=== PATIENT | female | born 1945 ===

== ENCOUNTER 2021-03-01 10:50 | Inpatient (IN) | payer OTHER ==
[~2021-03-01] VITALS: Ht 160 cm; Wt 108.4 kg
[2021-03-01] MEDS ORDERED: HYDROcodone-ACET 10/325MG TAB PO ONE (13:00)
[2021-03-01 14:30] LABS: Basophils # (auto) 0 10 ^3/uL (0-0.2); Basophils % (auto) 0.2 % (0.0-2.0); Eosinophils # (auto) 0 10 ^3/uL (0-0.8); Eosinophils % (auto) 0.2 % (0.0-7.0); Hematocrit 39.8 % (36.0-46.0); Lymphocytes # (auto) 1.1 10 ^3/uL (0.4-5.4); Lymphocytes % (auto) 7.2 % (10.0-50.0); Mean Corpuscular Hemoglobin 29.9 pg (28.0-32.0); Mean Corpuscular Hgb Conc. 32.7 g/dL (32.0-36.0); Mean Corpuscular Volume 91.6 fL (80.0-100.0); Monocytes # (auto) 0.4 10 ^3/uL (0-1.3); Monocytes % (auto) 2.2 % (0.0-12.0); Neutrophils # (auto) 14.2 10 ^3/uL (1.6-8.6); Neutrophils % (auto) 90.2 % (37.0-80.0); Red Blood Cells 4.35 10^6/uL (4.0-5.20); Red Cell Distribution Width 13.3 % (11.8-14.3); White Blood Cell 15.8 10^3/uL (4.4-10.8)
[2021-03-01 14:46] LABS: INR 1.01 (0.9-1.15); Partial Thromboplastin Time 25.1 sec (23.6-33.0)
[2021-03-01 14:51] LABS: Albumin 3.8 g/dL (3.4-5.0); Calcium 8.8 mg/dL (8.5-10.1)
[2021-03-01 14:56] LABS: BUN/Creatinine Ratio 19.5; Bilirubin, Total 1.1 mg/dL (0.2-1.0); Total Protein 6.9 g/dL (6.4-8.2)
[2021-03-01] MEDS ORDERED: ASPirin 81 mg TAB PO ONE (16:45)
[2021-03-01] MEDS ORDERED: HEPARIN SODIUM (PORCINE) 5000 UNITS/ML 1ML VIAL IV ONE ×2 (18:30→19:00)
[2021-03-01] MEDS ORDERED: DOCUSATE SOD 100 MG CAP PO PRN (18:30)
[2021-03-01] MEDS ORDERED: MORPHINE SULFATE 4 MG/ML SYR/VIAL IV ONE (18:30)
[2021-03-01] MEDS ORDERED: ACETAMINOPHEN 325 MG TAB PO PRN (18:30)
[2021-03-01] MEDS ORDERED: LORazepam 0.5 MG TAB PO PRN (18:30)
[2021-03-01] MEDS ORDERED: DEXTROSE (50%) 50ML SYRG IV PRN (18:30)
[2021-03-01] MEDS ORDERED: LISINOPRIL 10 MG TAB PO ONE (18:30)
[2021-03-01] MEDS ORDERED: HYDROcodone-ACET 5/325MG TAB PO PRN (18:30)
[2021-03-01] MEDS ORDERED: HEPARIN DRIP/D5W 100UNITS/ML 250 ML IV SCH (18:30)
[2021-03-01] MEDS ORDERED: NITROGLYCERIN 0.4 MG SL TAB SL PRN (18:30)
[2021-03-01] MEDS ORDERED: MORPHINE SULFATE INJECTION 2 MG/ML SYRG IV PRN (18:30)
[2021-03-01] MEDS: SOD CHL 0.45% 1,000 ML IV SCH (19:02)
[2021-03-01 19:15] LABS: Urine Amorphous Crystal FEW /hpf (None Seen); Urine Bacteria FEW /hpf (None Seen); Urine Blood Negative /uL (Negative); Urine Hyaline Cast MANY /lpf (0 - 2); Urine Mucus FEW (None Seen); Urine Specific Gravity 1.026 (1.001-1.035); Urine WBC 4 /hpf (0 - 5)
[2021-03-01 19:42] LABS: Cholesterol 160 mg/dL (< 200); Triglycerides 87 mg/dL (< 150)
[2021-03-01 19:44] LABS: HDL Cholesterol 65 mg/dL (40-59); LDL Cholesterol 81 mg/dL (< 100)
[2021-03-01] MEDS: ATORVASTATIN 20 MG TAB PO ONE ×2 (19:50→19:51)
[2021-03-01] MEDS: DOPamine 1600MCG/ML D5W 250 ML IV SCH (21:01)
[2021-03-01] MEDS: ONDANSETRON HCL 4 MG/2 ML VIAL IV PRN (21:16)
[2021-03-01] MEDS: HYDROmorphone HCL 2 MG/ML VL IV PRN (21:17)
[2021-03-02] MEDS: ACCU-CHEK COMFORT CURVE STRIP VI SCH ×4 (00:17→18:00)
[2021-03-02 02:45] LABS: INR 1.04 (0.9-1.15); Partial Thromboplastin Time 57.2 sec (23.6-33.0)
[2021-03-02] MEDS: HYDROmorphone HCL 2 MG/ML VL IV PRN ×4 (04:05→16:16)
[2021-03-02] MEDS: ONDANSETRON HCL 4 MG/2 ML VIAL IV PRN ×4 (04:05→16:16)
[2021-03-02] MEDS: InsuLIN REG 1unit/0.01ml Soln (100units/ml) SC SCH ×4 (06:33→18:00)
[2021-03-02 07:34] LABS: Basophils # (auto) 0.1 10 ^3/uL (0-0.2); Basophils % (auto) 0.6 % (0.0-2.0); Eosinophils # (auto) 0 10 ^3/uL (0-0.8); Hematocrit 32.9 % (36.0-46.0); Lymphocytes # (auto) 2.1 10 ^3/uL (0.4-5.4); Lymphocytes % (auto) 16.5 % (10.0-50.0); Mean Corpuscular Hemoglobin 30.4 pg (28.0-32.0); Mean Corpuscular Hgb Conc. 33.6 g/dL (32.0-36.0); Mean Corpuscular Volume 90.7 fL (80.0-100.0); Monocytes # (auto) 0.9 10 ^3/uL (0-1.3); Monocytes % (auto) 7.1 % (0.0-12.0); Neutrophils # (auto) 9.9 10 ^3/uL (1.6-8.6); Neutrophils % (auto) 75.8 % (37.0-80.0); Red Blood Cells 3.62 10^6/uL (4.0-5.20); Red Cell Distribution Width 13.1 % (11.8-14.3); White Blood Cell 13.1 10^3/uL (4.4-10.8)
[2021-03-02 07:39] LABS: INR 1.01 (0.9-1.15); Partial Thromboplastin Time 43.9 sec (23.6-33.0)
[2021-03-02] MEDS: DOPamine 1600MCG/ML D5W 250 ML IV SCH ×2 (10:03→23:35)
[2021-03-02] MEDS: SOD CHL 0.45% 1,000 ML IV SCH (11:30)
[2021-03-02] MEDS ORDERED: HEPARIN DRIP/D5W 100UNITS/ML 250 ML IV SCH ×2 (19:00→19:15)
[2021-03-03] MEDS: ACCU-CHEK COMFORT CURVE STRIP VI SCH ×4 (00:11→18:00)
[2021-03-03] MEDS: InsuLIN REG 1unit/0.01ml Soln (100units/ml) SC SCH ×4 (00:12→18:13)
[2021-03-03] MEDS: ONDANSETRON HCL 4 MG/2 ML VIAL IV PRN ×4 (01:55→15:45)
[2021-03-03] MEDS: HYDROmorphone HCL 2 MG/ML VL IV PRN ×2 (01:56→11:39)
[2021-03-03] MEDS: SOD CHL 0.45% 1,000 ML IV SCH ×3 (03:55→22:33)
[2021-03-03 08:36] LABS: Basophils # (auto) 0.1 10 ^3/uL (0-0.2); Basophils % (auto) 0.4 % (0.0-2.0); Eosinophils # (auto) 0 10 ^3/uL (0-0.8); Eosinophils % (auto) 0.1 % (0.0-7.0); Hematocrit 31.3 % (36.0-46.0); Hemoglobin 10.5 g/dL (12.2-16.2); Lymphocytes # (auto) 1.8 10 ^3/uL (0.4-5.4); Lymphocytes % (auto) 11.8 % (10.0-50.0); Mean Corpuscular Hemoglobin 30.5 pg (28.0-32.0); Mean Corpuscular Hgb Conc. 33.5 g/dL (32.0-36.0); Mean Corpuscular Volume 91.2 fL (80.0-100.0); Monocytes # (auto) 1.5 10 ^3/uL (0-1.3); Monocytes % (auto) 9.5 % (0.0-12.0); Neutrophils # (auto) 12.2 10 ^3/uL (1.6-8.6); Neutrophils % (auto) 78.2 % (37.0-80.0); Nucleated Red Blood Cells % 0.1 %; Red Blood Cells 3.44 10^6/uL (4.0-5.20); Red Cell Distribution Width 13.7 % (11.8-14.3); White Blood Cell 15.6 10^3/uL (4.4-10.8)
[2021-03-03 09:05] LABS: Calcium 8.8 mg/dL (8.5-10.1); Potassium 4.9 mmol/L (3.5-5.1)
[2021-03-03 09:08] LABS: BUN/Creatinine Ratio 43.5
[2021-03-03] MEDS ORDERED: IOHEXOL 350 MG/ML 100ML IJ ONE (12:36)
[2021-03-03] MEDS ORDERED: LIDOCAINE 2%HCL (LOCAL ANESTH.) INJ 20ML MDV ONE ×2 (12:36→13:26)
[2021-03-03] MEDS ORDERED: fentaNYL CITRATE 100 MCG/2 ML VL ONE ×2 (12:42→13:51)
[2021-03-03] MEDS ORDERED: MIDAZOLAM HCL 2MG/2ML 2ml VIAL (1mg/ml) ONE ×2 (12:43→13:51)
[2021-03-03] MEDS ORDERED: SODIUM CHL 0.9% 0 ML ONE (12:56)
[2021-03-03] MEDS ORDERED: ANGIOMAX 250 MG VIAL IV ONE (12:56)
[2021-03-03] MEDS ORDERED: VANCOMYCIN 1GM/250ML 250 ML IV ONE (13:25)
[2021-03-03] MEDS ORDERED: VANCOMYCIN HCL 1000 MG VL ONE (14:07)
[2021-03-03] MEDS ORDERED: IODIXANOL 320MG/ML 100ML BTL IV ONE (14:16)
[2021-03-03] MEDS ORDERED: LOSA-69 PO (17:42)
[2021-03-03] MEDS ORDERED: METF-370 PO (17:43)
[2021-03-03 20:00] VITALS: BP 117/47
[2021-03-03 22:00] VITALS: BP 106/66
[2021-03-03] MEDS ORDERED: ENOXAPARIN SOD 100 MG/1 ML SYRINGE SC SCH (22:00)
[2021-03-03] MEDS: VANCOMYCIN 1GM/250ML 250 ML IV SCH (22:31)
[2021-03-04] MEDS: MORPHINE SULFATE INJECTION 2 MG/ML SYRG IV PRN ×4 (01:11→19:00)
[2021-03-04] MEDS: SOD CHL 0.45% 1,000 ML IV SCH ×2 (01:13→01:45)
[2021-03-04] MEDS: InsuLIN REG 1unit/0.01ml Soln (100units/ml) SC SCH ×4 (01:54→17:14)
[2021-03-04 05:00] VITALS: BP 135/75
[2021-03-04] MEDS: ACCU-CHEK COMFORT CURVE STRIP VI SCH ×4 (06:02→17:22)
[2021-03-04 06:35] LABS: Basophils # (auto) 0.1 10 ^3/uL (0-0.2); Basophils % (auto) 0.8 % (0.0-2.0); Eosinophils # (auto) 0.1 10 ^3/uL (0-0.8); Eosinophils % (auto) 1.2 % (0.0-7.0); Hematocrit 29.5 % (36.0-46.0); Lymphocytes # (auto) 2.1 10 ^3/uL (0.4-5.4); Lymphocytes % (auto) 19.6 % (10.0-50.0); Mean Corpuscular Hemoglobin 31.1 pg (28.0-32.0); Mean Corpuscular Volume 91.4 fL (80.0-100.0); Monocytes # (auto) 0.9 10 ^3/uL (0-1.3); Monocytes % (auto) 8.5 % (0.0-12.0); Neutrophils # (auto) 7.4 10 ^3/uL (1.6-8.6); Neutrophils % (auto) 69.9 % (37.0-80.0); Red Blood Cells 3.22 10^6/uL (4.0-5.20); Red Cell Distribution Width 13.3 % (11.8-14.3); White Blood Cell 10.5 10^3/uL (4.4-10.8)
[2021-03-04 06:49] LABS: BUN/Creatinine Ratio 41.8; Potassium 4.5 mmol/L (3.5-5.1)
[2021-03-04 09:00] VITALS: BP 117/71
[2021-03-04] MEDS: VANCOMYCIN 1GM/250ML 250 ML IV SCH (09:49)
[2021-03-04] MEDS: ONDANSETRON HCL 4 MG/2 ML VIAL IV PRN ×2 (12:50→18:58)
[2021-03-04 13:00] VITALS: BP 121/81
[2021-03-04 17:00] VITALS: BP 136/84
[2021-03-04 20:00] VITALS: BP 117/47
[2021-03-04 22:00] VITALS: BP 153/85
[2021-03-05] MEDS: InsuLIN REG 1unit/0.01ml Soln (100units/ml) SC SCH ×4 (00:56→19:40)
[2021-03-05] MEDS: ACCU-CHEK COMFORT CURVE STRIP VI SCH ×4 (01:01→19:49)
[2021-03-05 05:00] VITALS: BP 137/78
[2021-03-05 05:13] LABS: Basophils # (auto) 0.1 10 ^3/uL (0-0.2); Basophils % (auto) 0.7 % (0.0-2.0); Eosinophils # (auto) 0.2 10 ^3/uL (0-0.8); Eosinophils % (auto) 2.9 % (0.0-7.0); Hematocrit 27.1 % (36.0-46.0); Hemoglobin 9.3 g/dL (12.2-16.2); Lymphocytes # (auto) 1.8 10 ^3/uL (0.4-5.4); Lymphocytes % (auto) 20.7 % (10.0-50.0); Mean Corpuscular Hemoglobin 31.3 pg (28.0-32.0); Mean Corpuscular Hgb Conc. 34.5 g/dL (32.0-36.0); Mean Corpuscular Volume 90.6 fL (80.0-100.0); Monocytes # (auto) 0.8 10 ^3/uL (0-1.3); Neutrophils # (auto) 5.7 10 ^3/uL (1.6-8.6); Neutrophils % (auto) 66.7 % (37.0-80.0); Nucleated Red Blood Cells % 0.1 %; Red Blood Cells 2.99 10^6/uL (4.0-5.20); Red Cell Distribution Width 12.9 % (11.8-14.3); White Blood Cell 8.6 10^3/uL (4.4-10.8)
[2021-03-05 05:45] LABS: BUN/Creatinine Ratio 34.4; Potassium 4.5 mmol/L (3.5-5.1)
[2021-03-05 08:00] VITALS: BP 153/93
[2021-03-05] MEDS: MORPHINE SULFATE INJECTION 2 MG/ML SYRG IV PRN ×2 (09:15→22:08)
[2021-03-05] MEDS ORDERED: HYDROmorphone HCL 2 MG/ML VL IV PRN (10:15)
[2021-03-05 13:00] VITALS: BP 152/81
[2021-03-05 17:00] VITALS: BP 163/91
[2021-03-05 22:00] VITALS: BP 138/78
[2021-03-05] MEDS ORDERED: HEPARIN DRIP/D5W 100UNITS/ML 250 ML IV SCH (22:00)
[2021-03-05] MEDS ORDERED: HEPARIN SODIUM (PORCINE) 5000 UNITS/ML 1ML VIAL IV ONE (22:00)
[2021-03-05 22:08] VITALS: BP 134/77
[2021-03-05] MEDS: SOD CHL 0.45% 1,000 ML IV SCH (22:09)
[2021-03-05 22:45] LABS: INR 0.98 (0.9-1.15)
[2021-03-06] MEDS: InsuLIN REG 1unit/0.01ml Soln (100units/ml) SC SCH (00:57)
== END 2021-03-06 04:05 | disposition short-term general hospital (02) | DRG 242 ==
LOC: EDBD 10:50 → ER 10:50 → TELE 18:20 → TELE-CENTR 03-03 16:55
PROVIDERS: ADMIT Family Medicine; ATTEND Internal Medicine Pulmonary Disease
PROC: 4A023N7 Measurement of Cardiac Sampling and Pressure, Left Heart, Percutaneous Approach (ICD-10-PCS; principal; 2021-03-03)
PROC: 0JH606Z Insertion of Pacemaker, Dual Chamber into Chest Subcutaneous Tissue and Fascia, Open Approach (ICD-10-PCS; 2021-03-03)
PROC: 02HK3JZ Insertion of Pacemaker Lead into Right Ventricle, Percutaneous Approach (ICD-10-PCS; 2021-03-03)
PROC: 02H63JZ Insertion of Pacemaker Lead into Right Atrium, Percutaneous Approach (ICD-10-PCS; 2021-03-03)
PROC: B2151ZZ Fluoroscopy of Left Heart using Low Osmolar Contrast (ICD-10-PCS; 2021-03-03)
PROC: B2111ZZ Fluoroscopy of Multiple Coronary Arteries using Low Osmolar Contrast (ICD-10-PCS; 2021-03-03)
DX: I44.2 Atrioventricular block, complete (principal); I21.4 Non-ST elevation (NSTEMI) myocardial infarction; S72.452A Displaced supracondylar fracture without intracondylar extension of lower end of left femur, initial encounter for closed fracture; E46 Unspecified protein-calorie malnutrition; Z68.41 Body mass index [BMI] 40.0-44.9, adult; I82.492 Acute embolism and thrombosis of other specified deep vein of left lower extremity; D72.829 Elevated white blood cell count, unspecified; I10 Essential (primary) hypertension; M19.90 Unspecified osteoarthritis, unspecified site; Z96.651 Presence of right artificial knee joint; Z20.822 Contact with and (suspected) exposure to COVID-19; E66.01 Morbid (severe) obesity due to excess calories; W18.39XA Other fall on same level, initial encounter; E11.9 Type 2 diabetes mellitus without complications; Z88.2 Allergy status to sulfonamides; Y93.89 Activity, other specified; Y92.098 Other place in other non-institutional residence as the place of occurrence of the external cause; Y99.8 Other external cause status; Z88.8 Allergy status to other drugs, medicaments and biological substances
CPT/HCPCS: 33208; 36415; 70450; 71045; 72192; 73562; 80048; 80053; 80061; 81001; 82962; 83036; 84443; 84484; 85025; 85610; 85730; 87426; 93005; 93306; 93458; 93970; 96374; 99152; 99153; G0378; J1815; J2250; J2405; Q9967

== ENCOUNTER 2022-07-09 17:20 | Inpatient (IN) | payer OTHER ==
[~2022-07-09] VITALS: Ht 170.2 cm; Wt 97.0 kg
[~2022-07-09 17:20] MED LIST: LOSA-69 PO; METF-370 PO
[2022-07-09] MEDS ORDERED: MAGNESIUM SULFATE 1GM/100ML 100 ML IV ONE ×2 (17:24→17:25)
[2022-07-09] MEDS ORDERED: SODIUM CHLORIDE 0.9% 1,000 ML IV ONE (17:30)
[2022-07-09] MEDS ORDERED: cefTRIAXone 1GM/50ML D5W 50 ML IV ONE (17:30)
[2022-07-09] MEDS ORDERED: ACETAMINOPHEN 325 MG TAB PO ONE (17:30)
[2022-07-09 18:23] LABS: Albumin 3.4 g/dL (3.4-5.0); Calcium 8.8 mg/dL (8.5-10.1); Magnesium 2.7 mg/dL (1.6-2.6); Potassium 4.5 mmol/L (3.5-5.1)
[2022-07-09 18:27] LABS: Lactic Acid w/Reflex 2.6 mmol/L (0.4-2.0)
[2022-07-09 18:32] LABS: BUN/Creatinine Ratio 27.7 (10.0-20.0); Bilirubin, Total 3.2 mg/dL (0.2-1.0); CRP High Sensitivity 9.85 mg/dL (< 0.3)
[2022-07-09 19:01] LABS: Basophils # (auto) 0 10 ^3/uL (0-0.2); Basophils % (auto) 0.3 % (0.0-2.0); Eosinophils # (auto) 0 10 ^3/uL (0-0.8); Hemoglobin 12.2 g/dL (12.2-16.2); Lymphocytes # (auto) 0.8 10 ^3/uL (0.4-5.4); Lymphocytes % (auto) 6.4 % (10.0-50.0); Mean Corpuscular Hemoglobin 29.5 pg (28.0-32.0); Mean Corpuscular Volume 89.4 fL (80.0-100.0); Monocytes % (auto) 7.6 % (0.0-12.0); Neutrophils # (auto) 11.2 10 ^3/uL (1.6-8.6); Neutrophils % (auto) 85.7 % (37.0-80.0); Nucleated Red Blood Cells % 0.1 %; Red Blood Cells 4.14 10^6/uL (4.0-5.20); White Blood Cell 13.1 10^3/uL (4.4-10.8)
[2022-07-09 19:40] LABS: Alcohol, Urine < 3.0 mg/dL (0-10); Amphetamine Screen, Urine NEGATIVE (NEGATIVE); Barbiturate Scree,Urine NEGATIVE (NEGATIVE); Benzodiazephine Screen, Urine NEGATIVE (NEGATIVE); Cannabinoid Screen, Urine NEGATIVE (NEGATIVE); Cocaine Screen, Urine NEGATIVE (NEGATIVE); Opiate Scree,Urine NEGATIVE (NEGATIVE); Phencyclidine Screen, Urine NEGATIVE (NEGATIVE)
[2022-07-09 20:01] LABS: Urine Bacteria NONE SEEN /hpf (None Seen); Urine Blood TRACE /uL (Negative); Urine Hyaline Cast FEW /lpf (0 - 2); Urine Mucus FEW (None Seen); Urine Specific Gravity 1.024 (1.001-1.035); Urine WBC 1 /hpf (0 - 5)
[2022-07-09] MEDS ORDERED: DEXTROSE (50%) 50ML SYRG IV PRN (22:15)
[2022-07-09] MEDS ORDERED: IBUPROFEN 600 MG TAB PO PRN (22:15)
[2022-07-09] MEDS ORDERED: ONDANSETRON HCL 4 MG/2 ML VIAL IV PRN (22:15)
[2022-07-09] MEDS ORDERED: DOCUSATE SOD 100 MG CAP PO PRN (22:15)
[2022-07-10] MEDS ORDERED: MORPHINE SULFATE INJ 2 MG/ml SYRG IV PRN
[2022-07-10] MEDS ORDERED: NITROGLYCERIN 0.4 MG SL TAB SL PRN
[2022-07-10 05:48] LABS: Albumin 2.8 g/dL (3.4-5.0); BUN/Creatinine Ratio 24.7 (10.0-20.0); Calcium 8.3 mg/dL (8.5-10.1); Potassium 4.1 mmol/L (3.5-5.1)
[2022-07-10 05:50] LABS: Bilirubin, Total 2.1 mg/dL (0.2-1.0); Total Protein 5.8 g/dL (6.4-8.2)
[2022-07-10 06:02] LABS: Basophils # (auto) 0 10 ^3/uL (0-0.2); Basophils % (auto) 0.2 % (0.0-2.0); Eosinophils # (auto) 0 10 ^3/uL (0-0.8); Eosinophils % (auto) 0.1 % (0.0-7.0); Hemoglobin 12.8 g/dL (12.2-16.2); Lymphocytes # (auto) 1.1 10 ^3/uL (0.4-5.4); Lymphocytes % (auto) 11.5 % (10.0-50.0); Mean Corpuscular Hemoglobin 30.4 pg (28.0-32.0); Mean Corpuscular Hgb Conc. 33.8 g/dL (32.0-36.0); Mean Corpuscular Volume 89.9 fL (80.0-100.0); Monocytes # (auto) 0.7 10 ^3/uL (0-1.3); Monocytes % (auto) 7.1 % (0.0-12.0); Neutrophils # (auto) 7.9 10 ^3/uL (1.6-8.6); Neutrophils % (auto) 81.1 % (37.0-80.0); Nucleated Red Blood Cells % 0.1 %; Red Blood Cells 4.22 10^6/uL (4.0-5.20); Red Cell Distribution Width 14.8 % (11.8-14.3); White Blood Cell 9.8 10^3/uL (4.4-10.8)
[2022-07-10] MEDS: SODIUM CHLOR 0.9% PF (SALINE LOCK) 10ML VIAL/SYR IV SCH ×3 (06:14→22:04)
[2022-07-10] MEDS: InsuLIN REG 1unit/0.01ml Soln (100units/ml) SC SCH ×4 (06:53→22:04)
[2022-07-10] MEDS: ACCU-CHEK COMFORT CURVE STRIP VI SCH ×4 (06:59→22:05)
[2022-07-10] MEDS ORDERED: VANCOMYCIN PER PHARMACY 0 MG IV SCH (07:15)
[2022-07-10] MEDS: ASPirin 81 mg TAB PO SCH (10:00)
[2022-07-10] MEDS: FUROSEMIDE 40 MG/4 ML VIAL IV SCH (10:00)
[2022-07-10] MEDS: VANCOMYCIN 1GM/250ML 250 ML IV SCH ×2 (10:01→20:00)
[2022-07-10] MEDS: FAMOTIDINE (10MG/ML) 2ML VL IV SCH (10:01)
[2022-07-10] MEDS ORDERED: DEXTROSE 10% 250 ML IV ONE (12:00)
[2022-07-10 19:16] LABS: INR 1.07 (0.9-1.15); Partial Thromboplastin Time 27.9 sec (24.6-33.4)
[2022-07-10] MEDS ORDERED: FURO40TA4 PO (20:56)
[2022-07-10] MEDS ORDERED: POTA1TAB61 (20:57)
[2022-07-10] MEDS: cefTRIAXone 1GM/50ML D5W 50 ML IV SCH (21:42)
[2022-07-10 22:00] VITALS: BP_SYST 108; BP_SYST 125; BP_DIAS 62; BP_DIAS 71
[2022-07-11 05:00] VITALS: BP 136/89
[2022-07-11] MEDS: SODIUM CHLOR 0.9% PF (SALINE LOCK) 10ML VIAL/SYR IV SCH ×3 (06:20→22:13)
[2022-07-11] MEDS: ACCU-CHEK COMFORT CURVE STRIP VI SCH ×4 (06:46→21:56)
[2022-07-11] MEDS: InsuLIN REG 1unit/0.01ml Soln (100units/ml) SC SCH ×4 (06:46→21:56)
[2022-07-11] MEDS: VANCOMYCIN 1GM/250ML 250 ML IV SCH ×2 (08:55→21:09)
[2022-07-11 09:00] VITALS: BP 96/47
[2022-07-11] MEDS: ASPirin 81 mg TAB PO SCH (09:35)
[2022-07-11] MEDS: FAMOTIDINE (10MG/ML) 2ML VL IV SCH (09:35)
[2022-07-11] MEDS: FUROSEMIDE 40 MG/4 ML VIAL IV SCH (09:36)
[2022-07-11 13:00] VITALS: BP 134/68
[2022-07-11 17:00] VITALS: BP 130/92
[2022-07-11] MEDS: cefTRIAXone 1GM/50ML D5W 50 ML IV SCH (17:57)
[2022-07-11 22:00] VITALS: BP 134/80
[2022-07-12 05:00] VITALS: BP_SYST 125; BP_SYST 139; BP_DIAS 70; BP_DIAS 92
[2022-07-12] MEDS: SODIUM CHLOR 0.9% PF (SALINE LOCK) 10ML VIAL/SYR IV SCH ×3 (05:52→22:36)
[2022-07-12] MEDS: ACCU-CHEK COMFORT CURVE STRIP VI SCH ×4 (05:52→21:45)
[2022-07-12] MEDS: InsuLIN REG 1unit/0.01ml Soln (100units/ml) SC SCH ×4 (06:03→21:46)
[2022-07-12] MEDS: FUROSEMIDE 40 MG/4 ML VIAL IV SCH (08:37)
[2022-07-12] MEDS: ASPirin 81 mg TAB PO SCH (08:38)
[2022-07-12 08:55] VITALS: BP 131/76
[2022-07-12 13:00] VITALS: BP 95/61
[2022-07-12] MEDS: LACTULOSE 20Gm/30ML SOLN PO ONE ×2 (14:35→14:41)
[2022-07-12 17:00] VITALS: BP 124/72
[2022-07-12] MEDS: cefTRIAXone 1GM/50ML D5W 50 ML IV SCH (18:04)
[2022-07-12 22:00] VITALS: BP 132/85
[2022-07-13 05:00] VITALS: BP 113/77
[2022-07-13] MEDS: InsuLIN REG 1unit/0.01ml Soln (100units/ml) SC SCH ×4 (06:11→21:29)
[2022-07-13] MEDS: ACCU-CHEK COMFORT CURVE STRIP VI SCH ×4 (06:11→21:29)
[2022-07-13] MEDS: SODIUM CHLOR 0.9% PF (SALINE LOCK) 10ML VIAL/SYR IV SCH ×3 (06:23→22:00)
[2022-07-13 09:00] VITALS: BP 128/71
[2022-07-13] MEDS: ASPirin 81 mg TAB PO SCH (09:09)
[2022-07-13] MEDS: FUROSEMIDE 40 MG/4 ML VIAL IV SCH (09:09)
[2022-07-13] MEDS: POTASSIUM CHL 10 Meq TABLET PO SCH (09:45)
[2022-07-13] MEDS: MAGNESIUM OXIDE 400 MG TAB PO SCH (09:45)
[2022-07-13 13:00] VITALS: BP 123/74
[2022-07-13 17:21] VITALS: BP 131/68
[2022-07-13] MEDS: cefTRIAXone 1GM/50ML D5W 50 ML IV SCH (17:26)
[2022-07-13 20:57] VITALS: BP 131/68
[2022-07-13] MEDS ORDERED: IPRATROPIUM BROM 0.5 MG/2.5ML INH SOL NEB PRN (21:00)
[2022-07-13 21:56] VITALS: BP 125/68
[2022-07-13] MEDS ORDERED: FEXOFENADINE HCL 60 MG TAB PO PRN (22:00)
[2022-07-14 04:47] VITALS: BP 130/74
[2022-07-14] MEDS: ACCU-CHEK COMFORT CURVE STRIP VI SCH (06:16)
[2022-07-14] MEDS: InsuLIN REG 1unit/0.01ml Soln (100units/ml) SC SCH (06:16)
[2022-07-14] MEDS: SODIUM CHLOR 0.9% PF (SALINE LOCK) 10ML VIAL/SYR IV SCH (06:16)
[2022-07-14 09:00] VITALS: BP 123/62
[2022-07-14] MEDS: MAGNESIUM OXIDE 400 MG TAB PO SCH (09:01)
[2022-07-14] MEDS: POTASSIUM CHL 10 Meq TABLET PO SCH (09:01)
[2022-07-14] MEDS: ASPirin 81 mg TAB PO SCH (09:01)
[2022-07-14] MEDS: FUROSEMIDE 40 MG/4 ML VIAL IV SCH (09:02)
[2022-07-14] MEDS ORDERED: LEVO750T8 PO (10:13)
[2022-07-14 10:28] VITALS: BP 123/62
== END 2022-07-14 11:10 | disposition short-term general hospital (02) | DRG 308 ==
LOC: ER 17:20 → EDBD 17:20 → TELE 23:51 → TELE-WESTW 07-10 18:57
PROVIDERS: ADMIT Nurse Practitioner Family; ATTEND Family Medicine
PROC: 4B02XSZ Measurement of Cardiac Pacemaker, External Approach (ICD-10-PCS; principal; 2022-07-10)
DX: I47.20 Ventricular tachycardia, unspecified (principal); I50.23 Acute on chronic systolic (congestive) heart failure; E87.1 Hypo-osmolality and hyponatremia; E11.65 Type 2 diabetes mellitus with hyperglycemia; I11.0 Hypertensive heart disease with heart failure; E78.00 Pure hypercholesterolemia, unspecified; R79.82 Elevated C-reactive protein (CRP); I25.10 Atherosclerotic heart disease of native coronary artery without angina pectoris; I71.40 Abdominal aortic aneurysm, without rupture, unspecified; J45.909 Unspecified asthma, uncomplicated; Z95.0 Presence of cardiac pacemaker; I25.2 Old myocardial infarction; Z79.4 Long term (current) use of insulin; Z86.718 Personal history of other venous thrombosis and embolism; Z88.2 Allergy status to sulfonamides; Z88.5 Allergy status to narcotic agent
CPT/HCPCS: 36415; 70450; 71045; 74176; 80053; 80202; 80307; 81001; 82140; 82962; 83036; 83605; 83690; 83735; 83880; 84484; 85025; 85610; 85652; 85730; 86141; 87040; 87077; 87186; 93005; 93306; 93970; 94640; 96365; 96367; 96375; 99291; G0378; J0696; J1815; J2405; J3490